=== PATIENT | female | born 1980 | race Caucasian/White ===

== ENCOUNTER 2016-12-30 21:08 | Inpatient (IN) | payer BC ==
[~2016-12-30] VITALS: Ht 154.9 cm; Wt 61.0 kg
[~2016-12-30 21:08] MED LIST: CETI10 PO; LEVOTAB14 PO; NAPR500 PO; PRENTAB72 PO; ZOVI800T13 PO
[2016-12-30 21:14] VITALS: BP 91/59; PULSE 120; RESP 18; TEMP 99.6; O2SAT 100
[2016-12-30 21:50] LABS: BLOOD, URINE NEG (NEG); GLUCOSE,URINE NEG (NEG); KETONE, URINE NEG (NEG); NITRITE,URINE NEG (NEG)
[2016-12-30] MEDS ORDERED: SODIUM CHLOR 0.9% 1000 ML INJ 1,000 ML IV ONE (21:53)
[2016-12-30] MEDS ORDERED: KETOROLAC TROMETHAMINE 30 MG/ML (IVP) VIAL IVP ONE (22:00)
[2016-12-30] MEDS ORDERED: SODIUM CHLORIDE 0.9% FLUSH 10 ML FLUSH IVF PRN (22:00)
[2016-12-30] MEDS ORDERED: cefTRIAXone INJ 1,000 MG in SODIUM CHLORIDE 0.9% INJ 100 ML IV ONE (22:00)
[2016-12-30 22:03] LABS: METHOD OF COLLECTION VOIDED; URINE COLOR STRAW (YELLW/STRAW)
[2016-12-30 22:04] LABS: COMMENT (UR) CULT NOT INDICATED; CULTURE IF INDICATED CULT NOT INDICATED; SQUAMOUS EPITHELIAL CELL URINE 0-2 /hpf (0-5); WBC, URINE 0-2 /hpf (0-5)
[2016-12-30 22:07] VITALS: BP 140/73; PULSE 128; RESP 18; TEMP 99.5; O2SAT 100
[2016-12-30] MEDS ORDERED: ZYRT10CA PO (22:17)
--- NOTE | 2016-12-30 22:53 | RADHPO ---
EXAM DATE/TIME: 12/30/2016 22:13 [place] COMPARISON: No previous studies available for comparison. INDICATIONS : Left flank pain. ORAL CONTRAST: No oral contrast ingested. RADIATION DOSE: 10.89 CTDIvol (mGy) MEDICAL HISTORY : None SURGICAL HISTORY : None. ENCOUNTER: Initial ACUITY: 1 day PAIN SCALE: 6/10 LOCATION: Left flank TECHNIQUE: Volumetric scanning of the abdomen and pelvis was performed. Using automated exposure control and ad justment of the mA and/or kV according to patient size, radiation dose was kept as low as reasonably achievable to obtain optimal diagnostic quality images. FINDINGS: There are multiple colonic diverticula especially on the left side with mural thickening over a dista nce of about 5 cm associated with edematous and inflammatory changes and a small amount of free fluid in left paracolic gutter most characteristic of an acute diverticulitis. Lung bases clear. No acute findings in the liver, spleen, adrenals or pancreas. There are 2 tiny nonobstructing 1 mm calculi in left kidney. No definite right renal calculi. No hydr onephrosis. No acute findings within the bladder. CONCLUSION: 1. Acute diverticulitis of the left mid descending colon with small amount of fluid in the paracolic gutter. No discrete abscess or obstruction. No free air. Declan Queen MD on December 30, 2016 at 22:47 Board Certified Radiologist. This report was verified electronically.
[2016-12-30 23:12] LABS: AUTOMATED NEUTROPHIL # 14.1 TH/MM3 (1.8-7.7); BASOPHIL # 0.8 TH/MM3 (0-0.2); BASOPHIL % 4.5 % (0.0-2.0); EOSINOPHIL # 0.1 TH/MM3 (0-0.4); EOSINOPHIL % 0.4 % (0.0-4.0); HEMATOCRIT 39.2 % (35.0-46.0); LYMPHOCYTE # 1.2 TH/MM3 (1.0-4.8); MEAN CELL VOLUME 87.4 FL (80.0-100.0); MEAN CORPUSCULAR HEMOGLOBIN 30.6 PG (27.0-34.0); MEAN CORPUSCULAR HGB CONC 35.1 % (32.0-36.0); MONO % 5.1 % (0.0-8.0); PLATELET COUNT 300 TH/MM3 (150-450); RED BLOOD COUNT 4.49 MIL/MM3 (4.00-5.30); RED CELL DISTRIBUTION WIDTH 11.7 % (11.6-17.2); WHITE BLOOD COUNT 17.1 TH/MM3 (4.0-11.0)
[2016-12-30] MEDS ORDERED: metroNIDAZOLE 500 MG INJ 100 ML IV ONE (23:15)
[2016-12-30 23:24] LABS: HEMO FLAGS AUTO DIFF; POTASSIUM 3.7 MEQ/L (3.5-5.1)
[2016-12-30 23:28] LABS: BICARBONATE 22.5 MEQ/L (21.0-32.0)
--- NOTE | 2016-12-30 23:40 | PD ---
HPI Chief Complaint: Flank/Kidney Pain Time Seen by Provider: 21:51 Travel History International Travel<30 days: No Contact w/Intl Traveler<30days: No Traveled to known affect area: No History of Present Illness HPI 36-year-old female presents to the emergency department for complaint of constant left-sided flank pain rating to the left hip since 1 PM. Patient's had no fever no chills no nausea no vomiting. Patient denies dysuria frequency urgency or hematuria. Patient states she is at the end of her. And has had no abnormal vaginal bleeding or discharge. Patient denies . Patient has had a venous urinary tract infections but denies history of kidney stones or pyelonephritis. Patient also denies history of inflammatory bowel disease colitis or diverticulitis. No other family members ill with similar complaints. Patient denies injury or trauma. Patient rates discomfort as moderate to severe, 5-7/10. Patient is unable to identify exacerbating or alleviating factors. PFSH Past Medical History Narrative Medical UTI; Ab1 miss one; no tobacco use: Nursing notes reviewed Respiratory: Yes Tetanus Vaccination: Unknown ?: Not LMP: 12/30/2016 : 3 Para: 1 Miscarriage: 1 : 1 Social History Alcohol Use: Yes (OCCASIONAL) Tobacco Use: No Substance Use: No Allergies-Medications (Allergen,Severity, Reaction): Coded Allergies: No Known Allergies (Verified , 12/30/16) Reported Meds & Prescriptions Reported Meds & Active Scripts Active Reported Zyrtec Allergy (Cetirizine HCl) 10 Mg Cap 10 Mg PO DAILY Review of Systems Except as stated in HPI: all other systems reviewed are Neg General / Constitutional: No: Fever, Chills HENT: No: Congestion Cardiovascular: No: Chest Pain or Discomfort Respiratory: No: Shortness of Breath Gastrointestinal: Positive: Abdominal Pain (left lower quadrant), No: Nausea, Vomiting, Diarrhea Genitourinary: Positive: Frequency, Flank Pain, Vaginal Bleeding, No: Urgency , Dysuria, Hematuria, Pelvic Pain (left-sided), Discharge Musculoskeletal: No: Myalgias, Arthralgias (end of menses) Skin: No Rash Neurologic: No: Weakness Psychiatric: No: Anxiety Hematologic/Lymphatic: No: Easy Bruising Physical Exam Narrative GENERAL: Well-developed well-nourished female in no acute distress no respiratory distress SKIN: Warm and dry. HEAD: Normocephalic. EYES: No scleral icterus. No injection or drainage. NECK: Supple, trachea midline. No JVD or lymphadenopathy. CARDIOVASCULAR: Regular rate and rhythm without murmurs, gallops, or rubs. RESPIRATORY: Breath sounds equal bilaterally. No accessory muscle use. GASTROINTESTINAL: Abdomen soft, mild left lower quadrant tenderness without guarding or rebound, nondistended. MUSCULOSKELETAL: No cyanosis, or edema. BACK: Nontender without obvious deformity. Left-sided CVA tenderness. Data Data Last Documented VS Vital Signs Date Time Temp Pulse Resp B/P Pulse Ox O2 Delivery O2 Flow Rate FiO2 12/30/16 22:07 18 12/30/16 22:07 99.5 128 140/73 100 Room Air Orders Urinalysis - C+S If Indicated (12/30/16 21:24) Ed Urine Pregnancytest Poc (12/30/16 21:24) Complete Blood Count With Diff (12/30/16 21:53) Basic Metabolic Panel (Bmp) (12/30/16 21:53) Ct Abd/Pel W/O Iv Contrast (12/30/16 21:53) Ecg Monitoring (12/30/16 21:53) Iv Access Insert/Monitor (12/30/16 21:53) Ketorolac Inj (Toradol Inj) (12/30/16 22:00) Sodium Chloride 0.9% Flush (Ns Flush) (12/30/16 22:00) Sodium Chlor 0.9% 1000 Ml Inj (Ns 1000 M (12/30/16 21:53) Blood Culture (12/30/16 21:53) Ceftriaxone Inj (Rocephin Inj) (12/30/16 22:00) Metronidazole 500 Mg Inj (Flagyl 500 Mg (12/30/16 23:15) Ciprofloxacin 400 Mg Premix (Cipro 400 M (12/31/16 00:00) Ciprofloxacin 400 Mg Premix (Cipro 400 M (12/31/16 12:00) Metronidazole 500 Mg Inj (Flagyl 500 Mg (12/31/16 08:00) Admit To Inpatient (12/30/16 ) Vital Signs (Adult) Q4H (12/30/16 23:58) Activity Oob Ad [place] (12/30/16 23:58) Intake + Output TIA.QSHIFT (12/30/16 23:58) Diet Regular Basic (12/31/16 Breakfast) Sodium Chlor 0.9% 1000 Ml Inj (Ns 1000 M (12/30/16 23:58) Sodium Chloride 0.9% Flush (Ns Flush) (12/31/16 00:00) Sodium Chloride 0.9% Flush (Ns Flush) (12/31/16 09:00) Ondansetron Inj (Zofran Inj) (12/31/16 00:00) Bisacodyl Supp (Dulcolax Supp) (12/31/16 00:00) Comprehensive Metabolic Panel (12/31/16 06:00) Complete Blood Count With Diff (12/31/16 06:00) Scd Bilateral/Knee High TIA.BID (12/30/16 23:58) Sammy Bilateral/Knee High TIA.QSHIFT (12/30/16 23:58) Acetaminophen (Tylenol) (12/31/16 00:00) Acetamin-Hydrocod 325-5 Mg ([place] 5-325 (12/31/16 00:00) Morphine Inj (Morphine Inj) (12/31/16 00:00) Inpatient Certification (12/30/16 ) Admit Order (Ed Use Only) (12/31/16 ) ^ Saline Lock (12/31/16 00:11) Resp Oxygen Jorge C Titrat 1-4 L (12/31/16 ) Notify Dr: Other (12/31/16 00:11) Sodium Chloride 0.9% Flush (Ns Flush) (12/31/16 09:00) Sodium Chloride 0.9% Flush (Ns Flush) (12/31/16 00:15) Labs Laboratory Tests Test 12/30/16 12/30/16 21:25 22:50 Urine Collection Type VOIDED Urine Color STRAW Urine Turbidity CLEAR Urine pH 6.0 Urine Specific [place] 1.018 Urine Protein NEG mg/dL Urine Glucose (UA) NEG mg/dL Urine Ketones NEG mg/dL Urine Occult Blood NEG Urine Nitrite NEG Urine Bilirubin NEG Urine Leukocyte Esterase NEG Urine WBC 0-2 /hpf Urine Squamous Epithelial 0-2 /hpf Cells Microscopic Urinalysis Comment CULT NOT INDICATED Sodium Level 139 MEQ/L Potassium Level 3.7 MEQ/L Chloride Level 103 MEQ/L Carbon Dioxide Level 22.5 MEQ/L Anion Gap 14 MEQ/L Blood Urea Nitrogen 9 MG/DL Creatinine 0.74 MG/DL Estimat Glomerular Filtration 89 ML/MIN Rate Random Glucose 107 MG/DL Calcium Level 9.0 MG/DL White Blood Count 17.1 TH/MM3 Red Blood Count 4.49 MIL/MM3 Hemoglobin 13.8 GM/DL Hematocrit 39.2 % Mean Corpuscular Volume 87.4 FL Mean Corpuscular Hemoglobin 30.6 PG Mean Corpuscular Hemoglobin 35.1 % Concent Red Cell Distribution Width 11.7 % Platelet Count 300 TH/MM3 Mean Platelet Volume 8.4 FL Neutrophils (%) (Auto) 83.0 % Lymphocytes (%) (Auto) 7.0 % Monocytes (%) (Auto) 5.1 % Eosinophils (%) (Auto) 0.4 % Basophils (%) (Auto) 4.5 % Neutrophils # (Auto) 14.1 TH/MM3 Lymphocytes # (Auto) 1.2 TH/MM3 Monocytes # (Auto) 0.9 TH/MM3 Eosinophils # (Auto) 0.1 TH/MM3 Basophils # (Auto) 0.8 TH/MM3 CBC Comment AUTO DIFF Differential Comment AUTO DIFF CONFIRMED Platelet Estimate NORMAL Platelet Morphology Comment NORMAL Red Cell Morphology Comment NORMAL MDM Medical Decision Making Medical Screen Exam Complete: Yes Emergency Medical Condition: Yes Medical Record Reviewed: Yes Interpretation(s) POC hcg: negative Last Impressions Abdomen/Pelvis CT 12/30/162152 Signed Impressions: Service Date/Time: Friday, December 30, 2016 22:13 - CONCLUSION: 1. Acute diverticulitis of the left mid descending colon with small amount of fluid in the paracolic gutter. No discrete abscess or obstruction. No free air. Declan Queen MD CBC & BMP Diagram 12/30/16 22:50 Vital Signs Date Time Temp Pulse Resp B/P Pulse Ox O2 Delivery O2 Flow Rate FiO2 12/30/16 22:07 18 12/30/16 22:07 99.5 128 18 140/73 100 Room Air 12/30/16 21:14 99.6 120 18 91/59 100 Differential Diagnosis Flank pain, renal colic, pyelonephritis, diverticulitis, colitis, ectopic , ovarian cyst; unlikely tubo-ovarian abscess Narrative Course IV access obtained patient identified tachycardic normal saline bolus administered along with presumptive IV antibiotic Rocephin 1 g IV piggyback Patient given Toradol 30 mg IV with pain relief CT abdomen and pelvis ordered CT consistent with diverticulitis without evidence of abscess or perforation small amount of fluid; leukocytosis; tachycardia; patient meets sepsis, criteria and will be admitted for ongoing IV antibiotics Additional IV antibiotics administered Flagyl and Cipro Patient's case discussed with on-call medicine physician for admission Dr. Madrigal Critical Care Narrative Aggregate critical care time was 35 minutes. Time to perform other separately billable procedures was not included in the critical care time. My time did not include minutes spent treating any other patients simultaneously or on activities that did not directly contribute to the patient's treatment. The services I provided to this patient were to treat and/or prevent clinically significant deterioration that could result in: Peritonitis, septic shock, I provided critical care services requiring my management, as noted below: Chart data review, documentation time, medication orders and management, vital sign assessments/reviewing monitor data, ordering and reviewing lab tests, ordering and interpreting/reviewing x-rays and diagnostic studies, care of the patient and discussion of the patient with the admitting physicians. Sepsis Criteria SIRS Criteria (2 or more): Heart rate over 90, WBC > 78011, < 4000 or > 10% bands (13,100 with left shift) Sepsis Criteria (SIRS+source): Infect source susp/known (diverticulitis) Physician Communication Physician Communication discussed with Dr Madrigal --accepts fro admission Diagnosis Primary Impression: Diverticulitis Qualified Code: K57.92 - Diverticulitis of intestine without perforation or abscess without bleeding, unspecified part of intestinal tract Additional Impression: Sepsis Qualified Code: A41.9 - Sepsis, due to unspecified organism Admitting Information Admitting Physician Requests: Admit Peyton Ivy MD Dec 30, 2016 23:40
[2016-12-31] VITALS (8 sets, daily range): BP systolic 101–128; BP diastolic 67–87; PULSE 96–112; RESP 16–20; TEMP 97.4–99.3; O2SAT 97–100
[2016-12-31] MEDS ORDERED: CIPROFLOXACIN 400 MG PREMIX 200 ML IV ONE
[2016-12-31] MEDS ORDERED: ACETAMINOPHEN 325 MG TAB PO PRN
[2016-12-31] MEDS ORDERED: MORPHINE SULFATE 4 MG/ML INJ IV PRN
[2016-12-31] MEDS ORDERED: BISACODYL 10 MG SUPP RECTAL PRN
[2016-12-31] MEDS ORDERED: SODIUM CHLORIDE 0.9% FLUSH 10 ML FLUSH IV FLUSH PRN
[2016-12-31] MEDS ORDERED: ACETAMINOPHEN/HYDROcodone 325 MG/5 MG TAB PO PRN
[2016-12-31] MEDS ORDERED: ONDANSETRON HCL 4 MG/2 ML VIAL IVP PRN
[2016-12-31] MEDS ORDERED: SODIUM CHLORIDE 0.9% FLUSH 10 ML FLUSH IVF PRN (00:15)
[2016-12-31 00:18] LABS: PLATELET ESTIMATE SMEAR NORMAL (NORMAL); PLATELET MORPHOLOGY NORMAL (NORMAL); SCAN/DIFF AUTO DIFF CONFIRMED
[2016-12-31] MEDS: SODIUM CHLOR 0.9% 1000 ML INJ 1,000 ML IV SCH ×2 (01:20→09:00)
[2016-12-31] MEDS ORDERED: metroNIDAZOLE 500 MG INJ 100 ML IV SCH (08:00)
--- NOTE | 2016-12-31 08:20 | HHI.HP ---
[facility] Service [facility] Primary Care Physician Anais Rivera MD Admission Diagnosis diverticulitis; sepsis Diagnoses: (1) Sepsis Diagnosis: Principal (2) Diverticulitis Diagnosis: Principal Chief Complaint: Abdominal pain Travel History International Travel<30 Days: No Contact w/Intl Traveler <30 Da: No Traveled to Known Affected Are: No Sepsis Criteria SIRS Criteria (2 or more): Heart rate over 90, WBC > 29602, < 4000 or > 10% bands Sepsis Criteria (SIRS+source): Infect source susp/known History of Present Illness 36-year-old female with intermittent constipation who presented to emergency department because of left lower abdominal pain. Patient states that she was in normal state of health until approximate 1 PM yesterday afternoon. [place] and she noticed that she started developing some pain in her lower left abdomen whenever she was running, picking her child up. The pain progressively got worse to where it was 8/10 on a pain scale when she was at home. She states that movement caused worsened pain and symptoms. Patient indicates that she had pain in her left inguinal area in April she had workup done at that time and told that she had an ovarian cyst. She did have similar symptoms 2 weeks ago, however she did not get evaluated that time because she thought it was related to the cyst. However now with the pain and symptoms that she was experiencing she had evaluation done emergency department. She met septic criteria with tachycardia, leukocytosis. Patient had CT scan done which does show diverticulitis of the left mid descending colon. Patient has had chills and she thinks that she may have had a fever. She denies any diarrhea, hematochezia, melena. She does suffer from intermittent constipation. Whenever she does not have a bowel movement in 2 days, she usually takes Metamucil. Upon evaluating the patient this morning she has remained afebrile, tachycardia has improved. Leukocytosis has improved. No longer any significant abdominal pain. Patient clinical status has drastically improved overnight. Review of Systems Constitutional: COMPLAINS OF: Fatigue, Chills, DENIES: Diaphoretic episodes, Fever, Weight gain, Weight loss, Dizziness, Change in appetite, Night Sweats Eyes: DENIES: Blurred vision, Diplopia, Eye inflammation, Eye pain, Vision loss , Photosensitivity, Double Vision Ears, nose, mouth, throat: DENIES: Vertigo, Nasal discharge, Throat pain, Ear Pain, Running Nose, Sinus Pain Respiratory: DENIES: Apneas, Cough, Snoring, Wheezing, Hemoptysis, Sputum production, Shortness of breath Cardiovascular: DENIES: Chest pain, Palpitations, Syncope, Dyspnea on Exertion , PND, Lower Extremity Edema, Orthopnea, Claudication Gastrointestinal: COMPLAINS OF: Abdominal pain, Constipation, DENIES: Black stools, Bloody stools, Diarrhea, Nausea, Vomiting, Difficulty Swallowing, Anorexia Neurologic: DENIES: Abnormal gait, Headache, Localized weakness, Paresthesias, Seizures, Speech Problems, Tremor, Poor Balance Past Family Social History Past Medical History No chronic medical illnesses Past Surgical History Vaginal surgery secondary to hematoma from childbirth Reported Medications Reported Meds & Active Scripts Active Reported Zyrtec Allergy (Cetirizine HCl) 10 Mg Cap 10 Mg PO DAILY Allergies: Coded Allergies: No Known Allergies (Verified , 12/30/16) Family History Reviewed and significant for father in his 90s in good health. Mother with degenerative bone disorders Social History Patient does drink alcohol rarely. Denies any tobacco or illicit drugs Physical Exam Vital Signs Vital Signs Date Time Temp Pulse Resp B/P Pulse Ox O2 Delivery O2 Flow Rate FiO2 12/31/16 04:00 99.3 109 20 101/67 99 12/31/16 02:30 99 12/31/16 02:15 98.5 107 20 128/87 98 12/31/16 01:27 112 18 124/79 98 Room Air 12/31/16 00:16 100 21 12/30/16 22:07 18 12/30/16 22:07 99.5 128 18 140/73 100 Room Air 12/30/16 21:14 99.6 120 18 91/59 100 Physical Exam GENERAL: Well-developed, well-nourished, in no acute distress. alert and orientated HEENT: Head is normocephalic without any lesions or masses noted. Facial features are symmetric. Eyes: Pupils equal round reactive to light. Extraocular muscles are intact. Conjunctivae were clear. Oropharyngeal: Pharynx without any erythema edema. Tongue is midline without deviation. Buccal mucosa is moist without any masses or lesions NECK: Supple without any masses. Trachea midline no deviation. No JVD, no bruits are appreciated CARDIAC: Regular rhythm, regular rate. S1/S2 are heard. No murmurs gallops or rubs. LUNGS: Clear to auscultation bilaterally. No wheeze, rhonchi or rales. No use of accessory muscles on inspiration or expiration. ABDOMEN: Soft, mild tenderness noted left lower quadrant. Nondistended. Bowel sounds heard in all 4 quadrants. No organomegaly or masses. Negative rebound, negative guarding EXTREMITIES: No edema, pulses are equal bilaterally. No cyanosis or clubbing NEUROLOGY: Mood and affect appear appropriate. Cranial nerves II through XII grossly intact. Muscle strength 5/5 in upper and lower extremities bilaterally. Deep tendon reflexes are 2+ in upper and lower extremities bilaterally. Laboratory Laboratory Tests Test 12/30/16 12/30/16 21:25 22:50 Urine Collection Type VOIDED Urine Color STRAW Urine Turbidity CLEAR Urine pH 6.0 Urine Specific [place] 1.018 Urine Protein NEG Urine Glucose (UA) NEG Urine Ketones NEG Urine Occult Blood NEG Urine Nitrite NEG Urine Bilirubin NEG Urine Leukocyte Esterase NEG Urine WBC 0-2 Urine Squamous Epithelial 0-2 Cells Microscopic Urinalysis Comment CULT NOT INDICATED Sodium Level 139 Potassium Level 3.7 Chloride Level 103 Carbon Dioxide Level 22.5 Anion Gap 14 Blood Urea Nitrogen 9 Creatinine 0.74 Estimat Glomerular Filtration 89 Rate Random Glucose 107 Calcium Level 9.0 White Blood Count 17.1 Red Blood Count 4.49 Hemoglobin 13.8 Hematocrit 39.2 Mean Corpuscular Volume 87.4 Mean Corpuscular Hemoglobin 30.6 Mean Corpuscular Hemoglobin 35.1 Concent Red Cell Distribution Width 11.7 Platelet Count 300 Mean Platelet Volume 8.4 Neutrophils (%) (Auto) 83.0 Lymphocytes (%) (Auto) 7.0 Monocytes (%) (Auto) 5.1 Eosinophils (%) (Auto) 0.4 Basophils (%) (Auto) 4.5 Neutrophils # (Auto) 14.1 Lymphocytes # (Auto) 1.2 Monocytes # (Auto) 0.9 Eosinophils # (Auto) 0.1 Basophils # (Auto) 0.8 CBC Comment AUTO DIFF Differential Comment AUTO DIFF CONFIRMED Platelet Estimate NORMAL Platelet Morphology Comment NORMAL Red Cell Morphology Comment NORMAL Date/Time Procedure Status Source Growth 12/30/16 22:55 Aerobic Blood Culture Received Blood Peripheral Pending 12/30/16 22:55 Anaerobic Blood Culture Received Blood Peripheral Pending Result Diagram: 12/30/16 2250 12/30/16 2250 Imaging Last Impressions Abdomen/Pelvis CT 12/30/162152 Signed Impressions: Service Date/Time: Friday, December 30, 2016 22:13 - CONCLUSION: 1. Acute diverticulitis of the left mid descending colon with small amount of fluid in the paracolic gutter. No discrete abscess or obstruction. No free air. Declan Queen MD Septic Shock Reassessment Heart: Other (tachycardic) Lungs: Clear Skin: Warm Peripheral Pulses: Bounding Right Radial Bounding Left Radial Capillary Refill: Brisk, <2 seconds Assessment and Plan Problem List: (1) Sepsis ICD Code: A41.9 Status: Acute (2) Diverticulitis ICD Code: K57.92 Status: Acute Assessment and Plan Sepsis, resolved: Patient met criteria on admission with leukocytosis, sinus tachycardia, CT scan indicating diverticulitis. Patient started on IV Cipro and Flagyl. Continue IV fluid. Urinalysis is clear, blood cultures are pending. Will obtain lactic acid level. Patient's likely improved. Leukocytosis improving. Abdominal pain drastically better. Diverticulitis: Likely secondary to chronic intermittent constipation. Continue antibiotics as described above. Continue pain control Hyperglycemia: Results are indicating possible prediabetes. Awaiting hemoglobin A1c. These results were discussed with the patient. She was notified to follow-up with her primary medical doctor for results and management. DVT prevention: Sequential compression devices Written by Esau Melgoza, acting as scribe for Dr. Byrd on 12/31/16 at 10: 20. Discharge disposition Discharge home in stable condition. She is significantly improved earlier than expected Activity: Ad rufina. Medications per medication reconciliation-Cipro, Flagyl and Lortab Follow-up primary medical doctor in one week, patient needs follow up on hemoglobin A1c result with primary doctor Dr. Villeda Physician Certification 2 Midnight Certification Type: Admission for Inpatient Services Order for Inpatient Services The services are ordered in accordance with Medicare regulations or non- Medicare payer requirements, as applicable. In the case of services not specified as inpatient-only, they are appropriately provided as inpatient services in accordance with the 2-midnight benchmark. Estimated LOS (days): 2 days is the estimated time the patient will need to remain in the hospital, assuming treatment plan goals are met and no additional complications. Post-Hospital Plan: Home Problem Qualifiers (1) Sepsis: Qualified Code: A41.9 - Sepsis, due to unspecified organism (2) Diverticulitis: Qualified Code: K57.92 - Diverticulitis of intestine without perforation or abscess without bleeding, unspecified part of intestinal tract Esau Melgoza Dec 31, 2016 08:20 Shawn Byrd MD Dec 31, 2016 15:49
[2016-12-31 08:35] LABS: BASOPHIL # 0.1 TH/MM3 (0-0.2); BASOPHIL % 0.7 % (0.0-2.0); EOSINOPHIL % 0.3 % (0.0-4.0); LYMPH % 6.7 % (9.0-44.0); MEAN CELL VOLUME 89.7 FL (80.0-100.0); MEAN CORPUSCULAR HEMOGLOBIN 30.6 PG (27.0-34.0); MEAN CORPUSCULAR HGB CONC 34.1 % (32.0-36.0); MONO % 8.2 % (0.0-8.0); NEUT % 84.1 % (16.0-70.0); PLATELET COUNT 259 TH/MM3 (150-450); WHITE BLOOD COUNT 14.3 TH/MM3 (4.0-11.0)
[2016-12-31 08:46] LABS: HEMO FLAGS DIFF FINAL
[2016-12-31 08:49] LABS: CHLORIDE 108 MEQ/L (98-107); POTASSIUM 3.6 MEQ/L (3.5-5.1); SODIUM (NA) 141 MEQ/L (136-145)
[2016-12-31] MEDS ORDERED: SODIUM CHLORIDE 0.9% FLUSH 10 ML FLUSH IV FLUSH SCH ×2 (09:00)
[2016-12-31 09:02] LABS: ALKALINE PHOSPHATASE 68 U/L (45-117); ALT (GPT) 17 U/L (10-53); ANION GAP 12 MEQ/L (5-15); AST (GOT) 15 U/L (15-37); BLOOD UREA NITROGEN 7 MG/DL (7-18); GLOMERULAR FILTRATION RATE 109 ML/MIN (>89); TOTAL BILIRUBIN ADULT 0.9 MG/DL (0.2-1.0)
[2016-12-31] MEDS ORDERED: DOCUSATE SODIUM 50 MG/SENNA 8.6 MG TAB PO SCH (10:00)
[2016-12-31] MEDS ORDERED: METR-1 PO (10:27)
[2016-12-31] MEDS ORDERED: CIPR-9 PO (10:27)
--- NOTE | 2016-12-31 10:27 | HHI.DCPOC ---
Discharge Care Plan Diagnosis: (1) Diverticulitis Goals to Promote Your Health * To prevent worsening of your condition and complications * To maintain your health at the optimal level Directions to Meet Your Goals Take your medications as prescribed Follow your dietary instruction Follow activity as directed Keep your appointments as scheduled Take your immunizations and boosters as scheduled If your symptoms worsen call your PCP, if no PCP go to Urgent Care Center or Emergency Room Smoking is Dangerous to Your Health. Avoid second hand smoke Call the 24-hour hour crisis hotline for domestic abuse at Esau Melgoza Dec 31, 2016 10:27
[2016-12-31] MEDS ORDERED: HYDR-3516 PO (10:33)
[2016-12-31] MEDS ORDERED: CIPROFLOXACIN 400 MG PREMIX 200 ML IV SCH (12:00)
[2016-12-31 12:53] LABS: HEMOGLOBIN A1a 1.3 %; HEMOGLOBIN A1b 0.9 %; HEMOGLOBIN Ao 86.3 %; HEMOGLOBIN F 0.8 %; HEMOGLOBIN P3 3.6 %
== END 2016-12-31 14:16 | disposition home or self-care (01) | DRG 872 ==
LOC: PHED 21:08 → PHEDA 12-31 00:13 → PH3A 12-31 02:05
PROVIDERS: ADMIT Internal Medicine; ATTEND Internal Medicine
DX: A41.9 Sepsis, unspecified organism (principal); K57.32 Diverticulitis of large intestine without perforation or abscess without bleeding; K59.00 Constipation, unspecified; N83.209 Unspecified ovarian cyst, unspecified side; R00.0 Tachycardia, unspecified; R73.03 Prediabetes
CPT/HCPCS: 74176; 80048; 80053; 81001; 83036; 83605; 84703; 85025; 87040; 96365; 96367; 96375; J0696; J0744; J1885; J2405; J7030